=== PATIENT | male | born 1965 | race African-American/Black ===

== ENCOUNTER 2019-10-27 19:34 | Emergency (ER) | payer BC, OTHER ==
[~2019-10-27] VITALS: Ht 167.6 cm; Wt 68.9 kg
[2019-10-27 20:00] VITALS: BP 137/91
[2019-10-27] MEDS ORDERED: metroNIDAZOLE 500 MG TAB PO ONE (21:00)
[2019-10-27] MEDS ORDERED: cefTRIAXone SODIUM 250 MG VL IM ONE (21:00)
[2019-10-27] MEDS ORDERED: AZITHROMYCIN 250 MG TAB PO ONE (21:00)
== END 2019-10-27 21:27 | disposition home or self-care (01) ==
LOC: ER 19:36
DX: Z20.2 Contact with and (suspected) exposure to infections with a predominantly sexual mode of transmission (principal); F17.200 Nicotine dependence, unspecified, uncomplicated
CPT/HCPCS: 96372; 99283; J0696